=== PATIENT | male | born 1975 | race Caucasian/White ===

== ENCOUNTER 2017-03-11 10:01 | Emergency (ER) | payer OTHER ==
[~2017-03-11] VITALS: Ht 170.2 cm; Wt 88.0 kg
[~2017-03-11 10:01] MED LIST: TYLENOL
[2017-03-11 10:27] VITALS: BP 143/80
--- NOTE | 2017-03-11 10:39 | NUR ---
PT TO BED 8
--- NOTE | 2017-03-11 10:40 | NUR ---
XRAY BY BEDSIDE
--- NOTE | 2017-03-11 10:44 | NUR ---
ERMD AT BEDSIDE
--- NOTE | 2017-03-11 10:44 | NUR ---
Paty delgadillo in [facility] - 03/11/17 at 1045 by FRANCISCA [id number]
--- NOTE | 2017-03-11 10:47 | NUR ---
41/M BIB FAMILY C/O R WRIST SWELLING AND PAIN [id number]; PT DENIES ANY PAIN AT THIS TIME; ONLY WHEN MOVING WRIST; PT DENIES ANY TRAUMA. CMS INTACT. MILD SWELLING NOTED TO R SWELLING; SKIN INTACT; SKIN IS PINK/WARM/DRY; AOX4 WITH EVEN AND STEADY GAIT; RR ARE EVEN AND UNLABORED; VSS; PATIENT POSITIONED FOR COMFORT; BED DOWN. ALL NEEDS MET AT THIS TIME.
[2017-03-11 11:28] VITALS: BP 137/81
--- NOTE | 2017-03-11 11:28 | NUR ---
Patient discharged with v/s stable. Written and verbal after care instructions given and explained. Patient verbalized understanding. Ambulatory with steady gait. All questions addressed prior to discharge. Advised to follow up with PMD.
== END 2017-03-11 11:28 | disposition home or self-care (01) ==
LOC: MED 10:01
DX: M77.8 Other enthesopathies, not elsewhere classified (principal); M25.531 Pain in right wrist
CPT/HCPCS: 73110; 99284